=== PATIENT | male | born 1955 | race Caucasian/White ===

== ENCOUNTER 2021-04-19 09:31 | Outpatient (REF) | payer MEDICARE, SELFPAY ==
--- NOTE | 2021-04-19 16:43 | MHC.AU.ANR ---
Adult Audiological Evaluation Date of Visit: 04/19/21 Reason for Appointment: Audiological evaluation due to concerns for decreased hearing. Mr. Carlton notes that he often has to ask for repetition and has difficulty understanding speech in the presence of background noise. He feels like his hearing has been gradually decreasing over time. 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 Mr. Carlton experienced low level tinnitus that he typically only notices at night when it is quiet. Does patient feel they have a hearing loss?: Yes If Yes, Which Ear?: Both Ears Has hearing been tested previously?: Yes Previous Hearing Test Results: Notes that he was previously tested 20 years ago and was told he had a very slight hearing loss. 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 Left Ear: Description of Hearing: Normal hearing from 250-2000 Hz, steeply sloping to a moderately-severe sensorineural hearing loss from 3442-0623 Hz and a moderate hearing loss at 8000 Hz. Speech Recognition Threshold (SRT): Method Used: Monitored Live Voice Stimuli Used: Spondee Words Right Ear: 10 dBHL Left Ear: 10 dBHL Word Discrimination: Method: Recorded Lists Word Lists Used: NU-6 Right Ear: 100% at 65 dBHL Left Ear: 96% at 65 dBHL QuickSIN: 3 dB SNR loss when presented at 65 dBHL binaurally, indicating normal [id number] understanding abilities. Recommendations: Audiological re-evaluation in one year. Trial with amplification is recommended. Based on type and degree of hearing loss, binaural amplification is recommended. Briefly discussed hearing aids. Mr. Carlton is planning to look into [id number] amplifiers at this time. Welcomed him to return if he would like to further discuss hearing aids. Diagnosis: Primary Diagnosis: H90.3 Bilateral Sensorineural Hearing Loss Services Performed: Services Performed: Comprehensive Audiological Evaluation (CPT 89767) Tympanometry (CPT 94601) Unlisted Otorhinolaryngological Service or Procedure (CPT 92620) Signature: Provider: Dina Castillo, CCC-A
== END 2021-04-19 09:32 | disposition home or self-care (01) ==
LOC: HO.SH 09:31
PROVIDERS: Visit Provider Physician Assistant Medical
DX: H90.3 Sensorineural hearing loss, bilateral (principal)
CPT/HCPCS: 92557; 92567; 92700

== ENCOUNTER 2021-04-30 05:24 | Emergency (ER) | payer MEDICARE, SELFPAY ==
--- NOTE | 2021-04-30 | ECG_ITS ---
Test Reason : ABNORMAL LABS Blood Pressure : / mmHG Vent. Rate : 060 BPM Atrial Rate : 060 BPM P-R Int : 190 ms QRS Dur : 078 ms QT Int : 462 ms P-R-T Axes : 065 -41 014 degrees QTc Int : 462 ms Sinus rhythm with Premature atrial complexes Left axis deviation Voltage criteria for left ventricular hypertrophy Nonspecific ST abnormality Abnormal ECG When compared with ECG of 13-APR-2019 06:29, Premature atrial complexes are now Present ST elevation now present in Inferior leads Referred By: Generic ED Physician Electronically Signed By:DEBBIE HILLIARD
[2021-04-30 05:34] VITALS: BP 184/101; PULSE 61; RESP 18; TEMP 36.9; O2SAT 99; BMI 32.6
[2021-04-30 05:57] VITALS: BP 177/81; PULSE 60; RESP 18; O2SAT 98
[2021-04-30 06:03] LABS: Basophils Absolute Auto 0.1 X10*3/uL (0.0-0.2); Basophils Percent Auto 0.7 % (0-2); Eosinophils Absolute Auto 0.2 X10*3/uL (0.0-0.4); Eosinophils Percent Auto 3.2 % (0-4); Hematocrit 41.9 % (42-52); Hemoglobin 14.8 g/dl (14.0-18.0); Imm Gran Abs Auto 0.09 X10*3/uL (0.00-0.03); Imm Gran Pct Auto 1.2 % (0.0-0.4); Lymphocytes Absolute Auto 2.1 X10*3/uL (1.2-4.9); MANUAL DIFF FLAG NO; Mean Corpuscular HGB Conc 35.3 g/dl (31.0-36.0); Mean Corpuscular Hemoglobin 31.5 pg (27.0-33.0); Mean Corpuscular Volume 89.1 fL (80-98); Mean Platelet Volume 9.2 fL (9.4-12.4); Monocytes Absolute Auto 0.9 X10*3/uL (0.1-1.2); Monocytes Percent Auto 11.6 % (2-11); Neutrophils Absolute Auto 4.1 X10*3/uL (2.0-8.3); Neutrophils Percent Auto 55.3 % (45-73); Platelet Count 164 X10*3/uL (160-400); Red Cell Distribution Width 11.9 % (11.0-16.0); White Blood Count 7.5 X10*3/uL (4.8-10.8)
[2021-04-30 06:08] LABS: INTERNATIONAL NORM RATIO 1.2 (0.9-1.1)
[2021-04-30 06:16] LABS: Ethanol < 10 mg/dL
[2021-04-30 06:19] LABS: COVID-19 Test Negative (Negative)
[2021-04-30 06:20] LABS: Alanine Aminotransferase 27 U/L (0-40); Albumin Level 4.3 g/dL (3.5-5.0); Alkaline Phosphatase 83 U/L (39-117); Anion Gap 15 (12-20); Aspartate Amino Transferase 27 U/L (5-37); Bilirubin Total 1.2 mg/dL (0.0-1.0); Blood Urea Nitrogen 6 mg/dL (9-16); Carbon Dioxide 24 mmol/L (22-29); Chloride 92 mmol/L (96-108); Estimated Glomerular Filt Rate > 60; Glucose Random 165 mg/dL (60-115); Magnesium 1.8 mg/dL (1.6-2.6); Potassium 3.6 mmol/L (3.3-5.1); Sodium 127 mmol/L (135-145); Total Protein 7.4 g/dL (6.5-8.0)
--- NOTE | 2021-04-30 06:33 | PC.NURSE ---
due to concerns of etoh withdrawal and low sodium, ekg, Labs protocoled, and IV access obtained.
--- NOTE | 2021-04-30 06:54 | ED_ITS ---
HPI - General Adult General Chief complaint: Recheck/Abnormal Lab/Rx Stated complaint: low sodium, muscle spasms Time Seen by Provider: 04/30/21 06:35 History of Present Illness HPI narrative: Patient is 65-year-old male presents today with having generalized malaise weakness. Cramping. History of similar episodes after drinking alcohol. Patient drank the last few days. Worried that his sodium is low again. Patient had a previous history of the same. No cough no congestion or upper respiratory symptoms. No diaphoresis. No chest pain. History of coronary artery disease. Related Data Allergies Allergy/AdvReac Type Severity Reaction Status Date / Time No Known Allergies Allergy Unverified 04/21/20 16:22 Review of Systems Review of Systems: Positive generalized malaise weakness No chest pain No diaphoresis All system reviewed otherwise negative Yes all other systems are reviewed and are negative FORMERLY [facility], [facility]–1983 Past Medical History Attestation statement: The following information was validated with the patient. Medical History Chest pain Diabetes EtOH dependence H/O ETOH abuse HTN (hypertension) Surgical History History of coronary artery stent placement History of hernia surgery History of throat surgery Social History Social History Alcohol intake: current Alcohol intake frequency: 3 or more drinks per day Alcohol type: beer and wine Patient Tobacco Use Status: Never used Tobacco Smoked in Last 30 Days: No Use of substances other than those prescribed or required for medical reasons: No Advance Directives: No Advance Directives Information Provided: Yes Physical Exam Vital Signs: Vital Signs: Last Vital Signs Temp 98.4 F 04/30/21 07:59 Pulse 63 04/30/21 07:59 Resp 15 04/30/21 07:59 BP 157/92 H 04/30/21 07:59 Pulse Ox 98 04/30/21 07:59 Body Mass Index 32.6 Appearance: Alert. Oriented X3. No acute distress. Eyes: Pupils equal, round and reactive to light. ENT: Pharynx normal. Neck: Normal inspection. Neck supple. No lymph nodes noted. No crepitus CVS: Normal heart rate and rhythm. Pulses normal. Normal S1 and S2 Respiratory: No respiratory distress. Breath sounds normal. No Wheezing. No rales Abdomen: Soft and nontender. No rigidity. No distention. good BS x4 Skin: Skin warm and dry. Normal skin color. Normal skin turgor. Extremities: No lower extremity edema. Neurovascular intact to all extremities. No Lacerations. No Rash Neuro: Oriented X 3. No motor deficit. No sensory deficit. Moving all extermities. No slurred speech Medical Decision Making MDM Narrative Medical decision making narrative: 65 years old history of having low sodium after repetitive binge drinking. Patient's sodium today is 127. The case was discussed with [facility] on-call field at comfortable with close follow- up on an outpatient basis repeat sodium on Saturday. Patient told to stop drinking alcohol. Told to follow strict water restriction. Close follow-up advised. In stable condition. Lab Data Result diagrams: 04/30/21 05:56 04/30/21 05:56 Labs: Lab Results 04/30/21 04/30/21 04/30/21 Range/Units 05:56 05:56 05:56 WBC 7.5 (4.8-10.8) X10*3/uL RBC 4.70 (4.60-5.80) X10*6/uL Hgb 14.8 (14.0-18.0) g/dl Hct 41.9 L (42-52) % MCV 89.1 (80-98) fL MCH 31.5 (27.0-33.0) pg MCHC 35.3 (31.0-36.0) g/dl RDW 11.9 (11.0-16.0) % Plt Count 164 (160-400) X10*3/uL MPV 9.2 L (9.4-12.4) fL Immature Gran % (Auto) 1.2 H (0.0-0.4) % Neut % (Auto) 55.3 (45-73) % Lymph % (Auto) 28.0 (20-40) % Pershing % (Auto) 11.6 H (2-11) % Eos % (Auto) 3.2 (0-4) % Baso % (Auto) 0.7 (0-2) % Lymph # (Auto) 2.1 (1.2-4.9) X10*3/uL Pershing # (Auto) 0.9 (0.1-1.2) X10*3/uL Eos # (Auto) 0.2 (0.0-0.4) X10*3/uL Baso # (Auto) 0.1 (0.0-0.2) X10*3/uL Abs Immat Gran (auto) 0.09 H (0.00-0.03) X10*3/uL Absolute Neuts (auto) 4.1 (2.0-8.3) X10*3/uL Absolute Nucleated RBC 0.000 (0.0-0.012) X10*3/uL Nucleated RBC % (auto) 0.0 (0.0-0.2) /100WBC PT 14.0 H (9.9-13.0) SEC INR 1.2 H (0.9-1.1) Sodium 127 L (135-145) mmol/L Potassium 3.6 (3.3-5.1) mmol/L Chloride 92 L (96-108) mmol/L Carbon Dioxide 24 (22-29) mmol/L Anion Gap 15 (12-20) BUN 6 L (9-16) mg/dL Creatinine 0.62 (0.5-1.4) mg/dL Estim Creat Clear Calc 104.0 Estimated GFR > 60 Random Glucose 165 H (60-115) mg/dL Calcium 9.0 (8.4-10.2) mg/dL Magnesium 1.8 (1.6-2.6) mg/dL Total Bilirubin 1.2 H (0.0-1.0) mg/dL AST 27 (5-37) U/L ALT 27 (0-40) U/L Alkaline Phosphatase 83 (39-117) U/L Total Protein 7.4 (6.5-8.0) g/dL Albumin 4.3 (3.5-5.0) g/dL Ethyl Alcohol mg/dL COVID-19 ([place]) (Negative) COVID-19 Clin Com 04/30/21 04/30/21 Range/Units 05:56 05:56 WBC (4.8-10.8) X10*3/uL RBC (4.60-5.80) X10*6/uL Hgb (14.0-18.0) g/dl Hct (42-52) % MCV (80-98) fL MCH (27.0-33.0) pg MCHC (31.0-36.0) g/dl RDW (11.0-16.0) % Plt Count (160-400) X10*3/uL MPV (9.4-12.4) fL Immature Gran % (Auto) (0.0-0.4) % Neut % (Auto) (45-73) % Lymph % (Auto) (20-40) % Pershing % (Auto) (2-11) % Eos % (Auto) (0-4) % Baso % (Auto) (0-2) % Lymph # (Auto) (1.2-4.9) X10*3/uL Pershing # (Auto) (0.1-1.2) X10*3/uL Eos # (Auto) (0.0-0.4) X10*3/uL Baso # (Auto) (0.0-0.2) X10*3/uL Abs Immat Gran (auto) (0.00-0.03) X10*3/uL Absolute Neuts (auto) (2.0-8.3) X10*3/uL Absolute Nucleated RBC (0.0-0.012) X10*3/uL Nucleated RBC % (auto) (0.0-0.2) /100WBC PT (9.9-13.0) SEC INR (0.9-1.1) Sodium (135-145) mmol/L Potassium (3.3-5.1) mmol/L Chloride (96-108) mmol/L Carbon Dioxide (22-29) mmol/L Anion Gap (12-20) BUN (9-16) mg/dL Creatinine (0.5-1.4) mg/dL Estim Creat Clear Calc Estimated GFR Random Glucose (60-115) mg/dL Calcium (8.4-10.2) mg/dL Magnesium (1.6-2.6) mg/dL Total Bilirubin (0.0-1.0) mg/dL AST (5-37) U/L ALT (0-40) U/L Alkaline Phosphatase (39-117) U/L Total Protein (6.5-8.0) g/dL Albumin (3.5-5.0) g/dL Ethyl Alcohol < 10 mg/dL COVID-19 ([place]) Negative (Negative) COVID-19 Clin Com See Note Discharge Plan Discharge Clinical Impression: Acute hyponatremia Patient Disposition: Home, Self-Care Instructions: Hyponatremia (ED) Referrals: Ousmane Rosenthal PA [Primary Care Provider] - 2 days (Please follow strict fluid restrictions. Please do not drink any more alcohol. Please closely follow-up with your doctor on Saturday)
[2021-04-30] MEDS: LORazepam 2 MG/ML VIAL 1 MG IVPUSH (07:53)
[2021-04-30 07:59] VITALS: BP 157/92; PULSE 63; RESP 15; TEMP 36.9; O2SAT 98
--- NOTE | 2021-04-30 08:00 | PC.NURSE ---
pt alert and oriented, vss, denies pain, no headache, dizziness, sob, chest pain. no complaints. pt asking plan of care, will follow-up with Dr. Gunderson.
== END 2021-04-30 08:57 | disposition home or self-care (01) ==
PROVIDERS: Emergency Provider Emergency Medicine Emergency Medical Services; PCP Physician Assistant Medical
DX: E87.1 Hypo-osmolality and hyponatremia (principal); R79.89 Other specified abnormal findings of blood chemistry; I25.10 Atherosclerotic heart disease of native coronary artery without angina pectoris; Z20.822 Contact with and (suspected) exposure to COVID-19
CPT/HCPCS: 36415; 80053; 82077; 83735; 85025; 85610; 87635; 93005; 96374; 99284; 99285; J2060

== ENCOUNTER 2024-11-02 10:00 | Outpatient (RCR) | payer MEDICARE, SELFPAY ==
[2024-09-09 10:27] LABS: Glucose, Whole Blood 157 mg/dL (60-115)
[2024-09-11 10:25] LABS: Glucose, Whole Blood 124 mg/dL (60-115)
[2024-09-16 11:06] LABS: Glucose, Whole Blood 138 mg/dL (60-115)
[2024-09-23 11:18] LABS: Glucose, Whole Blood 136 mg/dL (60-115)
[2024-09-23 11:18] LABS: Glucose, Whole Blood 190 mg/dL (60-115)
[2024-09-25 10:21] LABS: Glucose, Whole Blood 160 mg/dL (60-115)
[2024-09-25 11:00] LABS: Glucose, Whole Blood 119 mg/dL (60-115)
[2024-09-30 10:10] LABS: Glucose, Whole Blood 253 mg/dL (60-115)
[2024-09-30 11:08] LABS: Glucose, Whole Blood 204 mg/dL (60-115)
[2024-10-02 10:02] LABS: Glucose, Whole Blood 165 mg/dL (60-115)
[2024-10-02 11:16] LABS: Glucose, Whole Blood 145 mg/dL (60-115)
[2024-10-07 11:17] LABS: Glucose, Whole Blood 170 mg/dL (60-115)
[2024-10-16 10:15] LABS: Glucose, Whole Blood 179 mg/dL (60-115)
[2024-10-16 11:16] LABS: Glucose, Whole Blood 136 mg/dL (60-115)
== END 2024-11-03 09:08 | disposition home or self-care (01) ==
LOC: HO.CR 10:00
PROVIDERS: PCP Physician Assistant Medical
DX: Z98.61 Coronary angioplasty status (principal)
CPT/HCPCS: 82947; 93797; 93798